=== PATIENT | female | born 1985 | race Caucasian/White ===

== ENCOUNTER 2018-01-14 07:06 | Day surgery (SDC) | payer BC ==
[~2018-01-14] VITALS: Ht 157.5 cm; Wt 77.1 kg
[2018-01-14 07:44] LABS: HCG,QUAL RESULT NEGATIVE (NEGATIVE)
[2018-01-14] MEDS ORDERED: LR 1,000 ML IV SCH (11:26)
[2018-01-14] MEDS ORDERED: MORPHINE 4 MG/ML INJ. SYRINGE IVP PRN ×3 (11:30)
[2018-01-14] MEDS ORDERED: METOCLOPRAMIDE HCL 10 MG/2 ML VIAL IVP PRN (11:30)
[2018-01-14] MEDS ORDERED: LR 1,000 ML IV.SOLN IV ONE (11:40)
[2018-01-14] MEDS ORDERED: MIDAZOLAM HCL 5 MG/5 ML VIAL IVP ONE (11:40)
[2018-01-14] MEDS ORDERED: ROCURONIUM BROMIDE 10 MG/ML (ZEMURON) IV ONE (11:40)
[2018-01-14] MEDS ORDERED: ONDANSETRON HCL 4 MG/2 ML VIAL IVP ONE (11:40)
[2018-01-14] MEDS ORDERED: KETOROLAC TROMETHAMINE 30 MG VIAL IVP ONE (11:40)
[2018-01-14] MEDS ORDERED: SEVOFLURANE 15 MIN GAS INH ONE (11:40)
[2018-01-14] MEDS ORDERED: fentaNYL CITRATE/PF 100 MCG/2 ML AMP IVP ONE (11:40)
[2018-01-14] MEDS ORDERED: PROPOFOL 200MG/ 20ML VIAL (DIPRIVAN) IV ONE (11:40)
[2018-01-14] MEDS ORDERED: ONDANSETRON HCL 4 MG/2 ML VIAL IVP PRN (11:45)
[2018-01-14] MEDS ORDERED: PROMETHAZINE HCL 25 MG/ML AMP IM PRN ×2 (11:45)
[2018-01-14 12:34] VITALS: BP_SYST 137
== END 2018-01-14 13:30 | disposition home or self-care (01) ==
LOC: SDS 07:06 → SMU 07:06 → SDS 13:30
PROVIDERS: ATTEND Obstetrics & Gynecology
DX: N84.0 Polyp of corpus uteri (principal); I10 Essential (primary) hypertension; E11.10 Type 2 diabetes mellitus with ketoacidosis without coma; E66.3 Overweight; Z79.4 Long term (current) use of insulin; Z79.84 Long term (current) use of oral hypoglycemic drugs; Z79.899 Other long term (current) drug therapy; Z68.31 Body mass index [BMI] 31.0-31.9, adult; Z82.49 Family history of ischemic heart disease and other diseases of the circulatory system; Z80.3 Family history of malignant neoplasm of breast; Z83.3 Family history of diabetes mellitus
CPT/HCPCS: 36415; 58558; 82962; 84703; 86886; 86900; 86901; 88305; J1885; J2250; J2405; J2704; J3010; J7120